=== PATIENT | male | born 1955 | race Caucasian/White ===

== ENCOUNTER 2017-02-17 11:27 | Emergency (ER) | payer BC ==
[~2017-02-17] VITALS: Ht 172.7 cm; Wt 101.0 kg
[~2017-02-17 11:27] MED LIST: CARAFATE100 MG/ML PO; CYCLOBENZAPRINE10 MG PO; DOCUSATE SODIU100 MG PO; IBUPROFEN400 MG PO; NEURONTIN100 MG PO; POLYETHYLENE GL17 GM PO; PREDNISONE10 MG PO; RAPAFLO8 MG PO; TRAMADOL HCL50 MG PO; TYLENOL EXTRA500 MG PO; ULTRAM50 MG PO; ZESTORETIC 20-1 EAC1 NG; ZESTRIL40 MG PO
[2017-02-17 13:54] LABS: HEMATOCRIT 45.5 % (38.0-50.0); MCH 30.9 PG (29.0-34.0); MCHC 33.8 G/DL (30.0-36.0); MCV 91.4 FL (86-99); MEAN PLAT.VOLUME 10.4 uM^3 (9.0-12.4); PLATELET COUNT 214 K/uL (156-360); RBC DIS.WIDTH-CV 12.5 % (11.8-14.6); RBC DIS.WIDTH-SD 41.7 % (39-53); RED BLOOD COUNT 4.98 M/uL (4.00-5.50); WHITE BLOOD COUNT 7.6 K/uL (4.1-10.2)
[2017-02-17 14:01] LABS: CHLORIDE 107 mEq/L (99-109); POTASSIUM 4.3 mEq/L (3.7-5.4); SODIUM 139 mEq/L (136-147)
[2017-02-17 14:03] LABS: GLUCOSE 213 mg/dL (70-99)
[2017-02-17 14:04] LABS: ANION GAP 7 MEQ/L (2-14)
[2017-02-17 14:07] LABS: GFR ESTIMATE (CALCULATED) > 59 mL/min/
[2017-02-17 14:08] LABS: UREA NITROGEN (BUN) 16 mg/dL (9-23)
[2017-02-17] MEDS ORDERED: NAPROXEN500 MG PO (15:24)
[2017-02-17] MEDS ORDERED: SKELAXIN800 MG PO (15:24)
[2017-02-17 15:31] VITALS: BP 132/98
== END 2017-02-17 15:31 | disposition home or self-care (01) ==
LOC: EME 11:27
PROVIDERS: Physician Assistant
DX: S29.012A Strain of muscle and tendon of back wall of thorax, initial encounter (principal); K21.9 Gastro-esophageal reflux disease without esophagitis; J44.9 Chronic obstructive pulmonary disease, unspecified; I10 Essential (primary) hypertension
CPT/HCPCS: 72070; 80048; 85027; 99281; 99284; J1885

== ENCOUNTER 2017-12-31 19:54 | Emergency (ER) | payer BC ==
[~2017-12-31] VITALS: Ht 172.7 cm; Wt 91.2 kg
[~2017-12-31 19:54] MED LIST changes: +NAPROXEN500 MG PO; +SKELAXIN800 MG PO
[2017-12-31 20:48] LABS: CHLORIDE 99 mEq/L (99-109); POTASSIUM 3.8 mEq/L (3.7-5.4); SODIUM 136 mEq/L (136-147)
[2017-12-31 20:50] LABS: GLUCOSE 381 mg/dL (70-99)
[2017-12-31 20:54] LABS: GFR ESTIMATE (CALCULATED) > 59 mL/min/ (58.99-99999)
[2017-12-31 20:55] LABS: UREA NITROGEN (BUN) 9 mg/dL (9-23)
[2017-12-31 21:50] VITALS: BP 152/87
== END 2017-12-31 21:50 | disposition home or self-care (01) ==
LOC: EME 19:54
PROVIDERS: Emergency Medicine
DX: M62.838 Other muscle spasm (principal); E11.65 Type 2 diabetes mellitus with hyperglycemia; I10 Essential (primary) hypertension; J44.9 Chronic obstructive pulmonary disease, unspecified; K21.9 Gastro-esophageal reflux disease without esophagitis; Z88.8 Allergy status to other drugs, medicaments and biological substances
CPT/HCPCS: 80048; 99281; 99284; J1885